=== PATIENT | female | born 1970 | race Caucasian/White ===

== ENCOUNTER 2023-09-23 20:21 | Emergency (ER) | payer BC, SELFPAY ==
[2023-09-23] VITALS (17 sets, daily range): BP systolic 119–125; BP diastolic 75–88; PULSE 75–111; RESP 16–32; TEMP 36.3; O2SAT 93–97; BMI 66.5
--- NOTE | 2023-09-23 20:38 | ECG_ITS ---
The [facility] Test Date: 2023-09-23 Pat Name: KENDAL ROJAS Department: Room: - Gender: Female Mobile Mechanic: : 1970 Requested By: JANKI LANDEROS Order Number: [id number] Reading MD: DREW NAIR Measurements Intervals Hawkins Rate: 96 P: -5 OR: 136 QRS: 83 QRSD: 70 T: 63 QT: 342 QTc: 396 Interpretive Statements 1100 Sinus rhythm 9110 normal ECG No previous ECG available for comparison Electronically Signed On 09-24-2023 6:55:18 EST by DREW NAIR
--- NOTE | 2023-09-23 20:40 | ED.GENADUL1 ---
Documented by User: KRISTEN Aguero 09/23/23 21:27 HPI - General Adult General Chief complaint: Back Pain/Injury Stated complaint: URTI Time Seen by Provider: 09/23/23 20:22 Source: patient Mode of arrival: walk-in Limitations: no limitations History of Present Illness HPI narrative: Patient is a 53-year-old female who presents to the emergency department for the evaluation of upper respiratory symptoms and thoracic back pain. Patient states for the last several days she has had sore throat, cough and congestion. She reports pain to the right thoracic/scapular area that has been present intermittently since . She was diagnosed at [place] emergency department with pleurisy. She states the pain improved but has now returned. 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 She has not had any fevers, she states she did have vomiting this morning. She reports pain radiating around the left chest wall in the last several days that is new. Pain is worse with movement and coughing. No hemoptysis or leg swelling. Related Data Home Medications Medication Instructions Recorded Confirmed albuterol sulfate 90 mcg/actuation 2 puff inhalation Q6H PRN 09/23/23 09/23/23 aerosol inhaler shortness of breath or wheezing benzonatate 200 mg capsule 200 mg PO QID 09/23/23 09/23/23 montelukast 10 mg tablet mg 09/23/23 Allergies Allergy/AdvReac Type Severity Reaction Status Date / Time No Known Drug Allergies Allergy Verified 09/23/23 20:31 Review of Systems ROS Constitutional Denies: fever or chills Ears, nose, mouth, and throat Reports: throat pain and nasal congestion Cardiovascular Reports: chest pain Respiratory Reports: cough, pain on inspiration, change in phlegm color and chest congestion Gastrointestinal Reports: nausea and vomiting; Denies: diarrhea Musculoskeletal Reports: back pain Integumentary/Breast Denies: rash Neurological Denies: headache PFSH PFSH Social History Smoking status: Former smoker Exam Narrative Exam Narrative: Gen.: Awake, alert, in no distress Head: Normocephalic, atraumatic ENT: Moist mucous membranes, No pharyngeal erythema. Uvula midline with airway widely open and patent. Clear speech; Bilateral TMs clear Respiratory: No respiratory distress, lungs clear bilaterally; No coughing noted, pain with inspiration and movement of the chest Cardio: Regular rate and rhythm Extremities: Moves extremities equally, no Pedal edema Psych: Normal mood and affect Neuro: No focal neuro deficit Skin: Warm, dry, intact Constitutional Vital Signs, click to edit/add: Last Vital Signs Temp 97.4 F L 09/23/23 20:26 Pulse 92 H 09/23/23 21:58 Resp 09/23/23 21:58 BP 125/80 09/23/23 21:58 Pulse Ox 97 09/23/23 21:58 O2 Del Method Room Air 09/23/23 21:58 Course Vital Signs Vital signs: Vital Signs Temperature 97.4 F L 09/23/23 20:26 Pulse Rate 98 H 09/23/23 20:26 Respiratory Rate 09/23/23 20:26 Blood Pressure 122/78 09/23/23 20:26 Pulse Oximetry 96 09/23/23 20:26 Temperature 97.4 F L 09/23/23 20:26 Pulse Rate 92 H 09/23/23 21:58 Respiratory Rate 09/23/23 21:58 Blood Pressure 125/80 09/23/23 21:58 Pulse Oximetry 97 09/23/23 21:58 Oxygen Delivery Method Room Air 09/23/23 21:[address] [facility] Narrative Medical decision making narrative: 2129: Patient ordered to have IV medications and Hycodan for cough and pain. Lab studies ordered showing the patient has an elevated D-dimer but otherwise unremarkable labs. She maintains normal vital signs in the ER. She will be sent for CT Angio of the chest. She is stable at this time, resting comfortably. Case is turned over to attending physician for disposition. Medical Records Medical records reviewed: Yes I reviewed the patient's medical records Lab Data Lab results reviewed: Yes I reviewed the patient's lab results Labs: Lab Results 09/23/23 09/23/23 09/23/23 Range/Units 20:30 20:40 20:58 WBC 12.4 H (4.0-11.0) 10^3/uL RBC 4.66 (4.20-5.40) 10^6/uL Hgb 14.1 (12.0-16.0) g/dL Hct 42.4 (36.0-48.0) % MCV 91.0 (81.0-99.0) fL MCH 30.3 (26.7-34.0) pg MCHC 33.3 (29.9-35.2) g/dL RDW 11.7 (11.0-15.0) % Plt Count 384 (150-450) 10^3/uL MPV 10.6 (9.5-13.5) fL Neut % (Auto) 48.9 (43.0-75.0) % Lymph % (Auto) 39.6 (20.5-60.0) % Hodgeman % (Auto) 7.5 (1.7-12.0) % Eos % (Auto) 3.2 (0.9-7.0) % Baso % (Auto) 0.5 (0.2-2.0) % Neut # (Auto) 6.0 (1.4-6.5) 10^3/uL Lymph # (Auto) 4.9 H (1.2-3.8) 10^3/uL Hodgeman # (Auto) 0.9 H (0.3-0.8) 10^3/uL Eos # (Auto) 0.4 (0.0-0.7) 10^3/uL Baso # (Auto) 0.1 (0.0-0.1) 10^3/uL Abs Immat Gran (auto) 0.04 H (0.00-0.03) 10^3/uL Imm/Tot Granulo (auto) 0.3 (0.0-0.5) % PT 10.0 (9.0-11.6) sec INR 0.94 D-Dimer 1.36 H* (<=0.59) mg/L FEU Sodium 137 (136-145) mmol/L Potassium 3.7 (3.5-5.1) mmol/L Chloride 104 (98-107) mmol/L Carbon Dioxide 27.1 (21.0-32.0) mmol/L Anion Gap 9.6 BUN 11.0 (7.0-18.0) mg/dL Creatinine 0.73 (0.55-1.02) mg/dL Est GFR ( Amer) >60 (>=60) Est GFR (Non-Af Amer) >60 (>=60) BUN/Creatinine Ratio 15.1 Glucose 111 H (74-106) mg/dL Calcium 8.6 (8.5-10.1) mg/dL Total Bilirubin 0.3 (0.2-1.0) mg/dL AST 15 (15-37) U/L ALT 19 (14-59) U/L Alkaline Phosphatase 71 (46-116) U/L Troponin I High Sens <4.0 L (4.0-51.3) pg/mL Total Protein 6.9 (6.4-8.2) g/dL Albumin 2.9 L (3.4-5.0) g/dL Globulin 4.0 g/dL Albumin/Globulin Ratio 0.7 Influenza Type A Ag Negative Influenza Type B Ag Negative SARS-CoV-2 Ag (CV2AG) Negative (NEGATIVE) Streptococcus Screen Negative Imaging Data Chest x-ray: Radiologist's impression: ITS Impressions Chest CTA 09/23/23 21:21 IMPRESSION: 1. No evidence of pulmonary embolus. 2. Subacute healing left fifth and sixth rib fractures. The left fifth rib fracture is displaced. 3. Small left pleural effusion with adjacent pleural parenchymal thickening which may be related to scarring from the left-sided rib fractures. 4. Small pulmonary nodules in the right middle and lower lobes measuring up to 5 mm discussed above. If the patient has high clinical risk factors, annual low-dose unenhanced chest CT screening could be performed. Electronically authenticated by: YOLANDE WYNNE Date: 09/23/2023 22:38 ECG Data Attestation: I personally reviewed and interpreted this ECG as follows: (Normal sinus rhythm at a rate of 96, no acute ST elevation or ectopy. EKG reviewed by attending physician) Discharge Plan Discharge Chief Complaint: Back Pain/Injury Clinical Impression: Acute bilateral thoracic back pain, Multiple rib fractures, Pleurisy Patient Disposition: Home, Self-Care Prescriptions / Home Meds: No Action albuterol sulfate 90 mcg/actuation HFA aerosol inhaler 2 puff INHALATION Q6H PRN (Reason: shortness of breath or wheezing) benzonatate 200 mg capsule 200 mg PO QID montelukast 10 mg tablet Instructions: Pleurisy (ED), Rib Fracture (ED) Additional Instructions: follow up with your doctor regarding your pulmonary nodule as discussed Stand Alone Forms: Portal Instructions Referrals: JANKI LANDEROS MD [Primary Care Provider] - 1 week Documented by User: Solomon Butler MD 09/23/23 22:55 HPI - General Adult General Chief complaint: Back Pain/Injury Stated complaint: URTI Time Seen by Provider: 09/23/23 20:22 Related Data Home Medications Medication Instructions Recorded Confirmed albuterol sulfate 90 mcg/actuation 2 puff inhalation Q6H PRN 09/23/23 09/23/23 aerosol inhaler shortness of breath or wheezing benzonatate 200 mg capsule 200 mg PO QID 09/23/23 09/23/23 montelukast 10 mg tablet mg 09/23/23 Allergies Allergy/AdvReac Type Severity Reaction Status Date / Time No Known Drug Allergies Allergy Verified 09/23/23 20:31 PFSH PFSH Social History Smoking status: Former smoker Exam Constitutional Vital Signs, click to edit/add: Last Vital Signs Temp 97.4 F L 09/23/23 20:26 Pulse 92 H 09/23/23 21:58 Resp 20 09/23/23 21:58 BP 125/80 09/23/23 21:58 Pulse Ox 97 09/23/23 21:58 O2 Del Method Room Air 09/23/23 21:58 Course Vital Signs Vital signs: Vital Signs Temperature 97.4 F L 09/23/23 20:26 Pulse Rate 98 H 09/23/23 20:26 Respiratory Rate 20 09/23/23 20:26 Blood Pressure 122/78 09/23/23 20:26 Pulse Oximetry 96 09/23/23 20:26 Temperature 97.4 F L 09/23/23 20:26 Pulse Rate 92 H 09/23/23 21:58 Respiratory Rate 20 09/23/23 21:58 Blood Pressure 125/80 09/23/23 21:58 Pulse Oximetry 97 09/23/23 21:58 Oxygen Delivery Method Room Air 09/23/23 21:58 Medical Decision Making MDM Narrative Medical decision making narrative: 2129: Patient ordered to have IV medications and Hycodan for cough and pain. Lab studies ordered showing the patient has an elevated D-dimer but otherwise unremarkable labs. She maintains normal vital signs in the ER. She will be sent for CT Angio of the chest. She is stable at this time, resting comfortably. Case is turned over to attending physician for disposition. CT pending at change of shift. CT with subacute rib fractures, pleural thickening and pulmonary nodule. Patient and family informed of the above and the need to monitor pulmonary nodule as she does smoke cigarettes Lab Data Labs: Lab Results 09/23/23 09/23/23 09/23/23 Range/Units 20:30 20:40 20:58 WBC 12.4 H (4.0-11.0) 10^3/uL RBC 4.66 (4.20-5.40) 10^6/uL Hgb 14.1 (12.0-16.0) g/dL Hct 42.4 (36.0-48.0) % MCV 91.0 (81.0-99.0) fL MCH 30.3 (26.7-34.0) pg MCHC 33.3 (29.9-35.2) g/dL RDW 11.7 (11.0-15.0) % Plt Count 384 (150-450) 10^3/uL MPV 10.6 (9.5-13.5) fL Neut % (Auto) 48.9 (43.0-75.0) % Lymph % (Auto) 39.6 (20.5-60.0) % Hodgeman % (Auto) 7.5 (1.7-12.0) % Eos % (Auto) 3.2 (0.9-7.0) % Baso % (Auto) 0.5 (0.2-2.0) % Neut # (Auto) 6.0 (1.4-6.5) 10^3/uL Lymph # (Auto) 4.9 H (1.2-3.8) 10^3/uL Hodgeman # (Auto) 0.9 H (0.3-0.8) 10^3/uL Eos # (Auto) 0.4 (0.0-0.7) 10^3/uL Baso # (Auto) 0.1 (0.0-0.1) 10^3/uL Abs Immat Gran (auto) 0.04 H (0.00-0.03) 10^3/uL Imm/Tot Granulo (auto) 0.3 (0.0-0.5) % PT 10.0 (9.0-11.6) sec INR 0.94 D-Dimer 1.36 H* (<=0.59) mg/L FEU Sodium 137 (136-145) mmol/L Potassium 3.7 (3.5-5.1) mmol/L Chloride 104 (98-107) mmol/L Carbon Dioxide 27.1 (21.0-32.0) mmol/L Anion Gap 9.6 BUN 11.0 (7.0-18.0) mg/dL Creatinine 0.73 (0.55-1.02) mg/dL Est GFR ( Amer) >60 (>=60) Est GFR (Non-Af Amer) >60 (>=60) BUN/Creatinine Ratio 15.1 Glucose 111 H (74-106) mg/dL Calcium 8.6 (8.5-10.1) mg/dL Total Bilirubin 0.3 (0.2-1.0) mg/dL AST 15 (15-37) U/L ALT 19 (14-59) U/L Alkaline Phosphatase 71 (46-116) U/L Troponin I High Sens <4.0 L (4.0-51.3) pg/mL Total Protein 6.9 (6.4-8.2) g/dL Albumin 2.9 L (3.4-5.0) g/dL Globulin 4.0 g/dL Albumin/Globulin Ratio 0.7 Influenza Type A Ag Negative Influenza Type B Ag Negative SARS-CoV-2 Ag (CV2AG) Negative (NEGATIVE) Streptococcus Screen Negative Imaging Data Chest x-ray: Radiologist's impression: ITS Impressions Chest CTA 09/23/23 21:21 IMPRESSION: 1. No evidence of pulmonary embolus. 2. Subacute healing left fifth and sixth rib fractures. The left fifth rib fracture is displaced. 3. Small left pleural effusion with adjacent pleural parenchymal thickening which may be related to scarring from the left-sided rib fractures. 4. Small pulmonary nodules in the right middle and lower lobes measuring up to 5 mm discussed above. If the patient has high clinical risk factors, annual low-dose unenhanced chest CT screening could be performed. Electronically authenticated by: YOLANDE WYNNE Date: 09/23/2023 22:38 Discharge Plan Discharge Chief Complaint: Back Pain/Injury Clinical Impression: Acute bilateral thoracic back pain, Multiple rib fractures, Pleurisy Patient Disposition: Home, Self-Care Prescriptions / Home Meds: No Action albuterol sulfate 90 mcg/actuation HFA aerosol inhaler 2 puff INHALATION Q6H PRN (Reason: shortness of breath or wheezing) benzonatate 200 mg capsule 200 mg PO QID montelukast 10 mg tablet Instructions: Pleurisy (ED), Rib Fracture (ED) Additional Instructions: follow up with your doctor regarding your pulmonary nodule as discussed Stand Alone Forms: Portal Instructions Referrals: JANKI LANDEROS MD [Primary Care Provider] - 1 week
[2023-09-23 20:53] LABS: Internal Control Within Normal Limits; Strep A Antigen Screen Negative
[2023-09-23 20:59] LABS: Influenza Virus A Antigen Negative; Influenza Virus B Antigen Negative; Internal Control Within Normal Limits
[2023-09-23 21:00] LABS: SARS-CoV-2 Ag NEGATIVE (NEGATIVE)
[2023-09-23 21:05] LABS: Basophils Absolute Auto 0.1 10^3/uL (0.0-0.1); Basophils Percent Auto 0.5 % (0.2-2.0); Eosinophils Absolute Auto 0.4 10^3/uL (0.0-0.7); Eosinophils Percent Auto 3.2 % (0.9-7.0); Hematocrit 42.4 % (36.0-48.0); Hemoglobin 14.1 g/dL (12.0-16.0); Immature Granulocytes Abs Auto 0.04 10^3/uL (0.00-0.03); Immature Granulocytes Pct Auto 0.3 % (0.0-0.5); Lymphocytes Absolute Auto 4.9 10^3/uL (1.2-3.8); Lymphocytes Percent Auto 39.6 % (20.5-60.0); Mean Corpuscular HGB Conc 33.3 g/dL (29.9-35.2); Mean Corpuscular Hemoglobin 30.3 pg (26.7-34.0); Mean Platelet Volume 10.6 fL (9.5-13.5); Monocytes Absolute Auto 0.9 10^3/uL (0.3-0.8); Monocytes Percent Auto 7.5 % (1.7-12.0); Neutrophils Percent Auto 48.9 % (43.0-75.0); Platelet Count 384 10^3/uL (150-450); Red Blood Count 4.66 10^6/uL (4.20-5.40); Red Cell Distribution Width 11.7 % (11.0-15.0); White Blood Count 12.4 10^3/uL (4.0-11.0)
[2023-09-23] MEDS: HYDROCODONE BIT/HOMATROP 5 MG/1.5 MG TABLET 1 TAB PO (21:13)
[2023-09-23] MEDS: KETOROLAC TROMETHAMINE 30 MG/ML VIAL IVP (21:14)
[2023-09-23] MEDS: ORPHENADRINE 60 MG/ 2 ML VIAL IV (21:14)
[2023-09-23 21:19] LABS: INR 0.94
[2023-09-23 21:21] LABS: Alanine Aminotransferase 19 U/L (14-59); Albumin Globulin Ratio 0.7; Albumin Level 2.9 g/dL (3.4-5.0); Alkaline Phosphatase 71 U/L (46-116); Anion Gap 9.6; Aspartate Amino Transferase 15 U/L (15-37); BUN Creatinine Ratio 15.1; Bilirubin Total 0.3 mg/dL (0.2-1.0); Calcium 8.6 mg/dL (8.5-10.1); Carbon Dioxide 27.1 mmol/L (21.0-32.0); Chloride 104 mmol/L (98-107); D Dimer 1.36 mg/L FEU (<=0.59); Estimated GFR (African America >60 (>=60); Estimated GFR (Non-African Ame >60 (>=60); Glucose 111 mg/dL (74-106); Potassium 3.7 mmol/L (3.5-5.1); Sodium 137 mmol/L (136-145); Total Protein 6.9 g/dL (6.4-8.2)
--- NOTE | 2023-09-23 21:21 | CT_ITS ---
The [address] [address] Patient Name: KENDAL ROJAS MRN: [id number] date: 1970 Sex: F Assigned Patient Location: ED.MAIN Current Patient Location: Accession/Order Number: [id number] Exam Date: 09/23/2023 21:35 Report Date: 09/23/2023 22:38 At the request of: NELL WALDEN Procedure: CT angio chest EXAMINATION:CT angio chest INDICATION:scapular pain, cough COMPARISON:None TECHNIQUE:Thin section transaxial slices were acquired through the chest with intravenous contrast per PE protocol. Coronal and sagittal reconstructed images were reviewed. FINDINGS: PULMONARY ARTERIES: There is excellent opacification of the pulmonary vasculature. No suspicious pulmonary arterial filling defects are identified to suggest pulmonary embolus. LUNGS: There is a 5 mm-sized pulmonary nodule in the inferior right upper lobe on series 6 image 41. There is a another subpleural nodule in the posterior lateral right lower lobe measuring 4 mm on series 6 image 43. There is pleural parenchymal airspace density in the left lower lobe adjacent to a small pleural effusion. There is no pneumothorax. PLEURAL CAVITY: A small left pleural effusion is noted. MEDIASTINUM: Trachea and central airways are patent. HEART: No significant coronary artery calcifications are appreciated.There is no evidence of right heart strain. VASCULAR:No aneurysm or dissection of the thoracic aorta. LYMPH NODES:No suspicious lymphadenopathy. CHEST WALL/AXILLA: Chest wall and axilla are unremarkable. BONES: There are subacute healing fractures involving the left fifth and sixth ribs. The left fifth rib fracture is displaced. There is a late subacute or chronic appearing fracture involving the right fifth rib. VISUALIZED UPPER ABDOMEN: Upper abdominal structures are unremarkable. CT/CT angio chest IMPRESSION: 1. No evidence of pulmonary embolus. 2. Subacute healing left fifth and sixth rib fractures. The left fifth rib fracture is displaced. 3. Small left pleural effusion with adjacent pleural parenchymal thickening which may be related to scarring from the left-sided rib fractures. 4. Small pulmonary nodules in the right middle and lower lobes measuring up to 5 mm discussed above. If the patient has high clinical risk factors, annual low-dose unenhanced chest CT screening could be performed. Electronically authenticated by: YOLANDE WYNNE Date: 09/23/2023 22:38
[2023-09-23 21:23] LABS: Troponin I High Sensitivity <4.0 pg/mL (4.0-51.3)
== END 2023-09-23 23:23 | disposition home or self-care (01) ==
PROVIDERS: Physician Assistant; Emergency Provider Internal Medicine; PCP Internal Medicine
DX: M54.6 Pain in thoracic spine (principal); R09.1 Pleurisy; S22.42XD Multiple fractures of ribs, left side, subsequent encounter for fracture with routine healing; X58.XXXD Exposure to other specified factors, subsequent encounter; Z86.16 Personal history of COVID-19; Z79.899 Other long term (current) drug therapy; Z87.891 Personal history of nicotine dependence; Z20.822 Contact with and (suspected) exposure to COVID-19
CPT/HCPCS: 36415; 71275; 80053; 84484; 85025; 85378; 85610; 87070; 87804; 87811; 87880; 93005; 96374; 96375; 99285; J1885; J2360; Q9967